=== PATIENT | male | born 1950 | race Caucasian/White ===

== ENCOUNTER 2017-02-05 15:56 | Emergency (ER) | payer BC, MEDICARE ==
[2017-02-05] MEDS: SODIUM CHLORIDE 0.9% 1000ML 1,000 ML IV SCH ×3 (16:45→19:25)
[2017-02-05 17:03] LABS: BASOPHILS % (AUTO) 1 % (0-3); EOSINOPHILS % (AUTO) 1 % (0-9); HEMATOCRIT 29 % (39-53); MEAN CORPUSCULAR HGB CONC 34.3 gm/dl (32.0-36.0); MEAN CORPUSCULAR VOLUME 92 fL (80-100); MONOCYTES % (AUTO) 6.7 % (0-12); NEUTROPHILS % (AUTO) 82.5 % (37-80)
[2017-02-05 17:15] LABS: CALCIUM 9.1 mg/dl (8.5-10.1); POTASSIUM 4.8 mMol/L (3.5-5.1)
[2017-02-05] MEDS ORDERED: SODIUM CHLORIDE 0.9% 1000ML 1,000 ML IV SCH (18:15)
[2017-02-05 18:46] VITALS: RESP 18
[2017-02-05 18:49] VITALS: BP 175/55; PULSE 60; O2SAT 98
[2017-02-05] MEDS ORDERED: MORPHINE SULFATE 10 MG/ML SOL IV ONE (19:02)
[2017-02-05] MEDS ORDERED: MORPHINE SULFATE 10 MG/ML SOL ONE (19:05)
== END 2017-02-05 19:25 | disposition short-term general hospital (02) ==
LOC: ED 15:56
DX: S32.010A Wedge compression fracture of first lumbar vertebra, initial encounter for closed fracture (principal); M79.605 Pain in left leg; M79.604 Pain in right leg; R20.0 Anesthesia of skin; R20.2 Paresthesia of skin; W18.30XA Fall on same level, unspecified, initial encounter; I73.9 Peripheral vascular disease, unspecified
CPT/HCPCS: 99285 ×3; 80048; 83880; 85025; 85610; J2270; 36415; 72120